=== PATIENT | female | born 1945 | race Caucasian/White ===

== ENCOUNTER → 2016-06-07 | Outpatient (CLI) | payer OTHER, MEDICARE | LOC: BHFA 13:15 | PROVIDERS: ATTEND Internal Medicine Cardiovascular Disease | DX: R94.31 Abnormal electrocardiogram [ECG] [EKG] (principal); R07.9 Chest pain, unspecified ==

== ENCOUNTER → 2016-06-10 | Outpatient (CLI) | payer OTHER | LOC: FIMAGING 10:41 | PROVIDERS: ATTEND Family Medicine | DX: Z13.6 Encounter for screening for cardiovascular disorders (principal) ==

== ENCOUNTER → 2016-07-01 | Outpatient (CLI) | payer OTHER, MEDICARE | LOC: FIMAGING 12:21 | DX: Z12.31 Encounter for screening mammogram for malignant neoplasm of breast (principal); Z85.3 Personal history of malignant neoplasm of breast | CPT/HCPCS: G0202 ==

== ENCOUNTER 2017-02-25 12:00 | Observation (INO) | payer OTHER, MEDICARE ==
--- NOTE | 2017-02-25 13:01 | EDPHY ---
H & P Time Seen by Provider: 02/25/17 12:48 HPI/ROS: CHIEF COMPLAINT: Shortness of breath HISTORY OF PRESENT ILLNESS: Patient is a 71-year-old female who is status post bilateral lower extremity liposuction on February [address] Mcdermott. Patient is been ambulatory and doing well post procedure. However, for the past week he has had increasing shortness of breath. She states that is market. She has a mild cough that is nonproductive. No chest pain. No fevers or chills. Patient had bruising on her bilateral lower extremities after the procedure. She states they are minimally swollen bilaterally. The right is always slightly more swollen than the left per report. Patient has no leg pain. No rash. REVIEW OF SYSTEMS: My complete review of systems is negative except as mentioned in the HPI. Past Medical/Surgical History: Includes breast cancer, hypothyroidism Past surgical history: Includes liposuction Social history: The patient does not smoke Smoking Status: Never smoked Physical Exam: Vitals noted GENERAL: Well-appearing, in no acute distress, alert. HEENT: Eyes normal to inspection, normal pharynx, no signs of dehydration. NECK: No thyromegaly, no lymphadenopathy, supple. RESPIRATORY: Clear to auscultation bilaterally, no rales, rhonchi or wheezing. CVS: Regular rate and rhythm, no rubs, murmurs, or gallops. ABDOMEN: Soft, nontender, nondistended, no organomegaly. BACK: Normal to inspection, no CVA tenderness. SKIN: Normal color, no rash, warm, dry. No pallor. EXTREMITIES: Patient has minimal pedal edema. Right is slightly worse than the left. no calf tenderness, no Homans sign or cords, no joint swelling. The patient has bruising on her bilateral upper legs. This appears to be resolving normally from her procedure. No signs of erythema or fluid collection. NEURO/PSYCH: Alert and oriented x3, normal mood and affect, normal motor sensory exam. No obvious cranial nerve deficit. Constitutional: Initial Vital Signs Temperature (C) 37.2 C 02/25/17 12:12 Heart Rate 91 02/25/17 12:12 Respiratory Rate 16 02/25/17 12:12 Blood Pressure 112/66 02/25/17 12:12 O2 Sat (%) 94 02/25/17 12:12 O2 Delivery Mode Room Air Allergies/Adverse Reactions: penicillin G Allergy (Verified 02/25/17 12:09) Home Medications: Medication Instructions Recorded Ascorbic Acid [Vitamin C 500 mg 1,000 mg PO DAILY 02/25/17 (*)] Cholecalciferol Vit D3 [Vitamin D3 3,000 units PO DAILY 02/25/17 (*)] Fluticasone Propionate [Flonase 1 spray NS DAILY PRN 02/25/17 Allergy Relief] Herbals/Supplements -Info Only 1 ea PO DAILY 02/25/17 LORazepam [Ativan (*)] 1 mg PO HS 02/25/17 Lansoprazole [Prevacid] 15 mg PO DAILY 02/25/17 Levothyroxine [Synthroid 50 mcg 50 mcg PO DAILY06 02/25/17 (*)] Venlafaxine HCl [Venlafaxine HCl 75 mg PO DAILY 02/25/17 ER] Vitamin B Complex [B Complex] 2 each PO DAILY 02/25/17 Medical Decision Making - Diagnostics EKG Interpretation: Sinus rhythm at 78. Normal axis. Normal intervals. No ST or T-wave abnormalities. This EKG is interpreted as normal by me. Imaging Results: Imaging Impressions Extremity Venous Study 02/25/17 12:57 Impression: Negative. No deep venous thrombosis in the right or left lower extremity. Findings discussed with Emergency Department physician, Venessa Bro at 14 :07 hours on 02/25/17. Chest/Thorax CTA 02/25/17 14:12 Impression: 1. Moderate volume of acute thrombopulmonary embolic disease. 2. Airways disease and minimal air trapping. 3. No pulmonary infarction or effusion. Findings discussed with Emergency Department physician, Dr. Venessa Bro on February 25, 2017 at 1454 hours. ED Course/Re-evaluation: In the emergency department I discussed possible etiologies with the patient. I answered all her questions. IV was placed. Laboratory studies and ultrasound were ordered. Patient's CBC was notable for slightly low hematocrit. White count was normal. Chemistry panel is unremarkable. BNP was negative. Troponin was negative. Patient's D-dimer was elevated at greater than 3. Ultrasound of bilateral lower extremity. Please refer the dictated report by Dr. Barnett. No DVT noted. He has of the elevated D-dimer a CT angiogram was ordered. I discussed the results with the patient and plan. CT angio of the chest: Please refer the dictated report by Dr. Barnett.. Patient has numerous pulmonary emboli. I discussed the results with the patient. I answered all her questions. I paged the hospitalist service. The there is not a weight documented on the patient. I requested the nursing staff to with the patient. 15 30: I am still waiting weight. Because of this patient was given Lovenox 80 mg SQ 1535: Doctor David called back from the hospitalist service. He will admit the patient. Differential Diagnosis: My differential includes but is not limited to pneumonia, bronchitis, CHF, ACS, acute KS, DVT, PE - Data Points Laboratory Results: Laboratory Results 02/25/17 13:30 02/25/17 13:30 02/25/17 02/25/17 02/25/17 13:30 13:30 13:30 WBC 6.54 10^3/uL 10^3/uL (3.80-9.50) RBC 3.83 10^6/uL L 10^6/uL (4.18-5.33) Hgb 12.4 g/dL L g/dL (12.6-16.3) Hct 37.0 % L % (38.0-47.0) MCV 96.6 fL fL (81.5-99.8) MCH 32.4 pg pg (27.9-34.1) MCHC 33.5 g/dL g/dL (32.4-36.7) RDW 13.6 % % (11.5-15.2) Plt Count 250 10^3/uL 10^3/uL (150-400) MPV 10.4 fL fL (8.7-11.7) Neut % (Auto) 59.2 % % (39.3-74.2) Lymph % (Auto) 24.6 % % (15.0-45.0) [place] % (Auto) 10.2 % % (4.5-13.0) Eos % (Auto) 4.6 % % (0.6-7.6) Baso % (Auto) 0.6 % % (0.3-1.7) Nucleat RBC Rel Count 0.0 % % (0.0-0.2) Absolute Neuts (auto) 3.87 10^3/uL 10^3/uL (1.70-6.50) Absolute Lymphs (auto) 1.61 10^3/uL 10^3/uL (1.00-3.00) Absolute Monos (auto) 0.67 10^3/uL 10^3/uL (0.30-0.80) Absolute Eos (auto) 0.30 10^3/uL 10^3/uL (0.03-0.40) Absolute Basos (auto) 0.04 10^3/uL 10^3/uL (0.02-0.10) Absolute Nucleated RBC 0.00 10^3/uL 10^3/uL (0-0.01) Immature Gran % 0.8 % % (0.0-1.1) Immature Gran # 0.05 10^3/uL 10^3/uL (0.00-0.10) D-Dimer 3.44 ug/mLFEU H ug/mLFEU (0.00-0.50) Sodium 140 mEq/L mEq/L (134-144) Potassium 4.3 mEq/L mEq/L (3.5-5.2) Chloride 106 mEq/L mEq/L (97-110) Carbon Dioxide 26 mEq/l mEq/l (22-31) Anion Gap 8 mEq/L mEq/L (8-16) BUN 16 mg/dL mg/dL (7-23) Creatinine 0.9 mg/dL mg/dL (0.6-1.0) Estimated GFR > 60 Glucose 90 mg/dL mg/dL (70-100) Calcium 9.2 mg/dL mg/dL (8.5-10.4) Troponin I < 0.012 ng/mL ng/mL (0.000-0.034) NT-Pro-B Natriuret Pep 60 pg/mL pg/mL (0-125) Departure - Departure Disposition: Home, Routine, Self-Care Clinical Impression: Dyspnea Qualifiers: Dyspnea type: shortness of breath Qualified Code(s): R06.02 - Shortness of breath Condition: Good
[2017-02-25 13:49] LABS: % IMMATURE GRANULYOCYTES 0.8 % (0.0-1.1); ABSOLUTE IMMATURE GRANULOCYTES 0.05 10^3/uL (0.00-0.10); ADD DIFF? NO; ADD MORPH? NO; ADD SCAN? NO; ATYPICAL LYMPHOCYTE FLAG 0 (0-99); FRAGMENT RBC FLAG 0 (0-99); HEMOGLOBIN 12.4 g/dL (12.6-16.3); LEFT SHIFT FLG 0 (0-99); LIPEMIA HEMOLYSIS FLAG 80 (0-99); MEAN CELL HEMOGLOBIN 32.4 pg (27.9-34.1); MEAN CELL HEMOGLOBIN CONCENTR. 33.5 g/dL (32.4-36.7); MEAN CELL VOLUME 96.6 fL (81.5-99.8); MEAN PLATELET VOLUME 10.4 fL (8.7-11.7); PLATELET CLUMPS FLAG 0 (0-99); PLATELET COUNT 250 10^3/uL (150-400); RED BLOOD CELL COUNT 3.83 10^6/uL (4.18-5.33); RED CELL DISTRIBUTION WIDTH 13.6 % (11.5-15.2)
[2017-02-25 13:58] LABS: ANION GAP 8 mEq/L (8-16); CALCIUM 9.2 mg/dL (8.5-10.4); CARBON DIOXIDE 26 mEq/l (22-31); CHLORIDE 106 mEq/L (97-110); CREATININE 0.9 mg/dL (0.6-1.0); GLOMERULAR FILTRATION RATE > 60; GLUCOSE 90 mg/dL (70-100); POTASSIUM 4.3 mEq/L (3.5-5.2); SODIUM 140 mEq/L (134-144)
[2017-02-25 14:10] LABS: TROPONIN I < 0.012 ng/mL (0.000-0.034)
[2017-02-25] MEDS ORDERED: IOPAMIDOL (ISOVUE 370) 100 ML BTL IV ONE (14:18)
--- NOTE | 2017-02-25 15:15 | CPEKG ---
Heart Rate: 78 RR Interval: 769 P-R Interval: 168 QRSD Interval: 84 QT Interval: 408 QTC Interval: 465 P [place]: 58 QRS [place]: 23 T Wave [place]: 45 EKG Severity - OTHERWISE NORMAL ECG - EKG Impression: SINUS RHYTHM EKG Impression: LOW VOLTAGE IN FRONTAL LEADS Electronically Signed By: Venessa Bro 25-Feb-2017 20:04:28
[2017-02-25] MEDS ORDERED: ENOXAPARIN 80 MG/0.8 ML SYR SC ONE (15:34)
[2017-02-25] MEDS ORDERED: oxyCODONE IR 5 MG TAB PO PRN (18:02)
[2017-02-25] MEDS ORDERED: ONDANSETRON DISINTEGRATING 4 MG TAB PO PRN (18:02)
[2017-02-25] MEDS ORDERED: ONDANSETRON 4 MG/2 ML VIAL IVP PRN (18:02)
[2017-02-25] MEDS ORDERED: ACETAMINOPHEN 325 MG TAB PO PRN (18:02)
[2017-02-25] MEDS ORDERED: ALBUTEROL 3 ML DEYVIAL IH PRN (18:02)
--- NOTE | 2017-02-25 18:07 | PDGENHP ---
History and Physical - Chief Complaint SOB - History of Present Illness 71-year-old female who is status post bilateral lower extremity liposuction on February [address] Mcdermott who was seen at his office today for SOB and sent to the E.D. CTA showed bilateral PE's. No infarct or right sided strain. NO hx of PE. Never been on AC. Lovenox started in the E.D. she has a remote hx of breast cancer. Sees [place] every September. No constitutional symptoms. LE doppler negative for DVT. On RA No CP CTA reviewed EKG reviewed PMHX: breast cancer, hypothyroidism, depression, GERD Past surgical history: liposuction Social history: The patient does not smoke. Lives with FmHx: [place] History Information - Allergies/Home Medication List Allergies/Adverse Reactions: penicillin G Allergy (Verified 02/25/17 12:09) Home Medications: Ascorbic Acid [Vitamin C 500 mg (*)] 1,000 mg PO DAILY 02/25/17 [Last Taken ] Cholecalciferol Vit D3 [Vitamin D3 (*)] 3,000 units PO DAILY 02/25/17 [Last Taken 02/25/17] Fluticasone Propionate [Flonase Allergy Relief] 1 spray NS DAILY PRN 02/25/17 [ Last Taken Unknown] Herbals/Supplements -Info Only 1 ea PO DAILY 02/25/17 [Last Taken Unknown] LORazepam [Ativan (*)] 1 mg PO HS 02/25/17 [Last Taken 02/24/17] Lansoprazole [Prevacid] 15 mg PO DAILY 02/25/17 [Last Taken 02/25/17] Levothyroxine [Synthroid 50 mcg (*)] 50 mcg PO DAILY06 02/25/17 [Last Taken ] Venlafaxine HCl [Venlafaxine HCl ER] 75 mg PO DAILY 02/25/17 [Last Taken ] Vitamin B Complex [B Complex] 2 each PO DAILY 02/25/17 [Last Taken 02/25/17] I have personally reviewed and updated: medical history, social history - Social History Smoking Status: Never smoked Review of Systems Review of Systems: ROS: 10pt was reviewed & negative except for what was stated in HPI & below Physical Exam Physical Exam: Temp Pulse Resp BP Pulse Ox 36.6 C 75 14 146/80 H 96 02/25/17 16:18 02/25/17 16:18 02/25/17 16:18 02/25/17 16:18 02/25/17 16:18 Constitutional: no apparent distress, appears nourished Eyes: PERRL, EOMI Ears, Nose, Mouth, Throat: moist mucous membranes, hearing normal Cardiovascular: regular rate and rhythym, No edema Respiratory: no respiratory distress, no rales or rhonchi, reduced air movement , No clear to auscultation Gastrointestinal: normoactive bowel sounds, soft, non-tender abdomen Skin: warm Neurologic: AAOx3 Psychiatric: interacting appropriately, not anxious, not encephalopathic Lab Data & Imaging Review 02/25/17 13:30 02/25/17 13:30 WBC 6.54 10^3/uL (3.80-9.50) 02/25/17 13:30 RBC 3.83 10^6/uL (4.18-5.33) L 02/25/17 13:30 Hgb 12.4 g/dL (12.6-16.3) L 02/25/17 13:30 Hct 37.0 % (38.0-47.0) L 02/25/17 13:30 MCV 96.6 fL (81.5-99.8) 02/25/17 13:30 MCH 32.4 pg (27.9-34.1) 02/25/17 13:30 MCHC 33.5 g/dL (32.4-36.7) 02/25/17 13:30 RDW 13.6 % (11.5-15.2) 02/25/17 13:30 Plt Count 250 10^3/uL (150-400) 02/25/17 13:30 MPV 10.4 fL (8.7-11.7) 02/25/17 13:30 Neut % (Auto) 59.2 % (39.3-74.2) 02/25/17 13:30 Lymph % (Auto) 24.6 % (15.0-45.0) 02/25/17 13:30 [place] % (Auto) 10.2 % (4.5-13.0) 02/25/17 13:30 Eos % (Auto) 4.6 % (0.6-7.6) 02/25/17 13:30 Baso % (Auto) 0.6 % (0.3-1.7) 02/25/17 13:30 Nucleat RBC Rel Count 0.0 % (0.0-0.2) 02/25/17 13:30 Absolute Neuts (auto) 3.87 10^3/uL (1.70-6.50) 02/25/17 13:30 Absolute Lymphs (auto) 1.61 10^3/uL (1.00-3.00) 02/25/17 13:30 Absolute Monos (auto) 0.67 10^3/uL (0.30-0.80) 02/25/17 13:30 Absolute Eos (auto) 0.30 10^3/uL (0.03-0.40) 02/25/17 13:30 Absolute Basos (auto) 0.04 10^3/uL (0.02-0.10) 02/25/17 13:30 Absolute Nucleated RBC 0.00 10^3/uL (0-0.01) 02/25/17 13:30 Immature Gran % 0.8 % (0.0-1.1) 02/25/17 13:30 Immature Gran # 0.05 10^3/uL (0.00-0.10) 02/25/17 13:30 D-Dimer 3.44 ug/mLFEU (0.00-0.50) H 02/25/17 13:30 Sodium 140 mEq/L (134-144) 02/25/17 13:30 Potassium 4.3 mEq/L (3.5-5.2) 02/25/17 13:30 Chloride 106 mEq/L (97-110) 02/25/17 13:30 Carbon Dioxide 26 mEq/l (22-31) 02/25/17 13:30 Anion Gap 8 mEq/L (8-16) 02/25/17 13:30 BUN 16 mg/dL (7-23) 02/25/17 13:30 Creatinine 0.9 mg/dL (0.6-1.0) 02/25/17 13:30 Estimated GFR > 60 02/25/17 13:30 Glucose 90 mg/dL (70-100) 02/25/17 13:30 Calcium 9.2 mg/dL (8.5-10.4) 02/25/17 13:30 Troponin I < 0.012 ng/mL (0.000-0.034) 02/25/17 13:30 NT-Pro-B Natriuret Pep 60 pg/mL (0-125) 02/25/17 13:30 Assessment & Plan Assessment: #Acute PE #Hx of Breast Cancer #Hypothyroidism #GERD Plan: observation lovenox likely transition to oral agent tomorrow TTE, the pts requests f/u with Oncology continue appropriate home meds Full code
[2017-02-25] MEDS: ENOXAPARIN 80 MG/0.8 ML SYR SC SCH (20:09)
[2017-02-25] MEDS ORDERED: LORazepam 1 MG TAB PO SCH (21:00)
[2017-02-25] MEDS ORDERED: ENOXAPARIN 80 MG/0.8 ML SYR SC SCH (21:00)
[2017-02-25] MEDS ORDERED: FLUTICASONE NASAL 120 SPRAYS/16 GM MDI NS PRN (21:00)
[2017-02-26 05:03] LABS: ABSOLUTE IMMATURE GRANULOCYTES 0.06 10^3/uL (0.00-0.10); ADD DIFF? NO; ADD MORPH? NO; ADD SCAN? NO; ATYPICAL LYMPHOCYTE FLAG 0 (0-99); FRAGMENT RBC FLAG 0 (0-99); HEMATOCRIT 36.3 % (38.0-47.0); HEMOGLOBIN 12.3 g/dL (12.6-16.3); LEFT SHIFT FLG 0 (0-99); LIPEMIA HEMOLYSIS FLAG 90 (0-99); MEAN CELL HEMOGLOBIN 33.2 pg (27.9-34.1); MEAN CELL HEMOGLOBIN CONCENTR. 33.9 g/dL (32.4-36.7); MEAN CELL VOLUME 97.8 fL (81.5-99.8); MEAN PLATELET VOLUME 10.1 fL (8.7-11.7); PLATELET CLUMPS FLAG 10 (0-99); PLATELET COUNT 245 10^3/uL (150-400); RED BLOOD CELL COUNT 3.71 10^6/uL (4.18-5.33); RED CELL DISTRIBUTION WIDTH 13.8 % (11.5-15.2)
[2017-02-26 05:31] LABS: ANION GAP 7 mEq/L (8-16); CALCIUM 8.9 mg/dL (8.5-10.4); CARBON DIOXIDE 29 mEq/l (22-31); CHLORIDE 106 mEq/L (97-110); CREATININE 0.9 mg/dL (0.6-1.0); GLOMERULAR FILTRATION RATE > 60; GLUCOSE 88 mg/dL (70-100); MAGNESIUM 2.3 mg/dL (1.6-2.3); POTASSIUM 4.8 mEq/L (3.5-5.2); SODIUM 142 mEq/L (134-144)
[2017-02-26] MEDS ORDERED: LEVOTHYROXINE 50 MCG TAB PO SCH (06:00)
[2017-02-26 07:29] VITALS: BP 134/81; PULSE 77; RESP 12; TEMP 97.8; O2SAT 94
[2017-02-26] MEDS ORDERED: ASCORBIC ACID 500 MG TAB PO SCH (09:00)
[2017-02-26] MEDS ORDERED: Herbals/Supplements -Info Only PO SCH (09:00)
[2017-02-26] MEDS ORDERED: CHOLECALCIFEROL VIT D3 1,000 UNITS TAB PO SCH (09:00)
[2017-02-26] MEDS: PANTOPRAZOLE SODIUM 40 MG TAB PO SCH ×2 (09:31→09:37)
[2017-02-26] MEDS: VITAMIN B COMPLEX 1 EA CAP/TAB PO SCH ×2 (09:31→10:03)
[2017-02-26] MEDS: VENLAFAXINE XR 75 MG CAP PO SCH ×2 (09:32→09:36)
[2017-02-26] MEDS: ENOXAPARIN 80 MG/0.8 ML SYR SC SCH (09:42)
--- NOTE | 2017-02-26 09:59 | ASMTCMCOM ---
CM Note CM Note Notes: Pt. is a 71-year-old woman admitted w/ bilateral PEs. Had liposuction procedure on 02/14/17. Hx. breast cancer. No PT/OT orders. Pt. lives w/ . Plan for independent d/c at this time. CM available should d/c POC change. Date Signed: 02/26/2017 09:58 AM Electronically Signed By:Kayla De Leon LCSW
--- NOTE | 2017-02-26 13:07 | HOSPPROG ---
Hospitalist Progress Note Assessment/Plan: Patient is a 71 y/o female who is s/p lower ext liposuction on February 14. She had a f/u appt with Dr Mcdermott after this procedure and was short of breath. She had a CTA which showed Bilateral PE's. Today is my first encounter w the patient, chart reviewed. *acute bilateral PE's -started on Lovenox -patient checking her insurance to see if they cover Xarelto -she doesn't want to do lovenox shots *hx of remote breast ca -further f/u with Dr Damon *Hypothyroidism *GERD *Plan: f/u with echo, if doing well, can dc later today Subjective: Angela is feeling well. No complaints. Objective: Vital Signs Temp Pulse Resp BP Pulse Ox 36.6 C 77 12 134/81 H 94 02/26/17 07:27 02/26/17 07:27 02/26/17 07:27 02/26/17 07:27 02/26/17 07:27 Laboratory Results 02/26/17 04:46 02/26/17 04:46 - Physical Exam Constitutional: no apparent distress, appears nourished, not in pain Eyes: PERRL Ears, Nose, Mouth, Throat: hearing normal Cardiovascular: regular rate and rhythym Respiratory: no respiratory distress Gastrointestinal: normoactive bowel sounds Skin: warm, normal color Musculoskeletal: full muscle strength Neurologic: AAOx3 Psychiatric: interacting appropriately ICD10 Worksheet Patient Problems: Problems Problem Status Onset Dyspnea Acute
--- NOTE | 2017-02-26 13:33 | ECHO ---
[email or web address] [address] [address] Main: [phone] Fax: Transthoracic Echocardiogram Name: LUPE LYNN MR#: [id number] Study Date: 02/26/2017 Study Time: 12:14 PM Date of : 1945 Age: 71 year(s) Height: 154.9 cm (61 in.) Weight: 67.13 kg (148 lb.) BSA: 1.66 m2 Gender: Female Examination: Echo Indication: PE, eval RV strain Image Quality: Contrast: Requested by: Wally Hernandez BP: 119 mmHg/67 mmHg Heart Rate: Rhythm: Normal sinus rhythm Indication: PE, eval RV strain Procedure Staff Magnetic Locater: Maximo Burks Reading Physician: Salomón Castillo Requesting Provider: Conclusions: Normal size left ventricle. EF is 61 %. No regional wall motion abnormality. Normal size right ventricle. Normal RV function. Trivial to mild tricuspid valve regurgitation. Measurements: Chambers Valvular Assessment AV/MV Valvular Assessment TV/PV Normal Normal Normal Name Value Range Name Value Range Name Value Range Ao Barbara (MM): 2.4 cm (2.2 cm-3.7 LVOT Vmax: 0.90 m/s (0.7 m/s-1.1 TR Vmax: 2.81 mm/s ( - ) cm) m/s) TR PGmax: 32 mmHg ( - ) IVSd (2D): 0.7 cm (0.6 cm-1.1 MV E Vmax: 0.60 m/s ( - ) syst. PAP: 37 mmHg ( - ) cm) MV A Vmax: 0.89 m/s ( - ) PV Vmax: 0.95 m/s (0.6 m/s-0.9 LVDd (2D): 4.3 cm (3.9 cm-5.3 MV E/A: 0.67 ( - ) m/s) cm) PV PGmax: 4 mmHg ( - ) LVDs (2D): 2.9 cm (2.1 cm-4 cm) LVPWd (2D): 0.9 cm ( - ) LVEF (2D): 61 (>=54 %) Continued Measurements: Chambers Valvular Assessment AV/MV Valvular Assessment TV/PV Name Value Name Value Name Value LADs Lon.7 cm MV E/E' Septal: 10.70 CVP (est.): 5 mmHg LA Area: 15.8 cm2 MV E/E' Lateral: 7.30 Patient: LUPE LYNN Study Date: 02/26/2017 Page 1 of 2 12:14 PM Findings: Left Ventricle: Normal size left ventricle. No LV hypertrophy. Normal global systolic LV function. EF is 61 %. No regional wall motion abnormality. Diastolic dysfunction is present. . Right Ventricle: Normal size right ventricle. Normal RV function. Left Atrium: The left atrium is normal in size. Right Atrium: The right atrium is normal in size. Mitral Valve: The mitral valve is normal in appearance and function. Trivial mitral valve regurgitation. Aortic Valve: The aortic valve is normal in appearance and function. The aortic valve is tri-leaflet. There is no aortic valve regurgitation. Tricuspid Valve: Trivial to mild tricuspid valve regurgitation. The pulmonary artery pressure is normal. Pulmonic Valve: The pulmonic valve is normal in appearance and function. Aorta: The aorta is normal. Pericardium: No pericardial effusion. (No Signature Object) Patient: LUPE LYNN Study Date: 02/26/2017 Page 2 of 2 12:14 PM [id number]
--- NOTE | 2017-02-26 16:23 | GDS ---
[f rep st] DISCHARGE SUMMARY DISCHARGE DIAGNOSES: 1. Bilateral pulmonary emboli. 2. History of remote cancer. 3. Hypothyroidism. 4. Gastroesophageal reflux disease. HISTORY OF PRESENT ILLNESS: Briefly, the patient is a 71-year-old female who is status post lower extremity liposuction on February 14. She had a followup appointment with her doctor. At this visit, she was complaining of being significantly short of breath. Her doctor recommended she come to the hospital for further evaluation. At that time, she had a CTA which showed bilateral pulmonary emboli. HOSPITAL COURSE: 1. Acute bilateral pulmonary emboli: She was treated with a treatment dose of Lovenox. She will be discharged on Xarelto. I gave her a starter pack to get initiated on this. She will further follow up with Dr. Araya. She had an echocardiogram performed that did not show any right-sided heart strain. She has normal RV function. Her EF was 61%. She has some diastolic dysfunction. 2. History of breast cancer: She will further follow with Dr. Damon. 3. Hypothyroidism: On Synthroid. 4. GERD: No complaints. DISCHARGE CONDITION: Stable. Blood pressure is 134/81, O2 sat on room air 94% , respiratory rate is 12, pulse is 77, temperature is 36.6 Celsius. MEDICATIONS AT DISCHARGE: Please see the EMR. DISCHARGE INSTRUCTIONS: 1. Get the Xarelto filled at [facility] today. 2. Do the starter pack, and then after she is done with this, she will be on 20 mg daily. /[id number]/MODL MTDD
== END 2017-02-26 16:13 | disposition home or self-care (01) ==
LOC: F3E 16:14
PROVIDERS: ADMIT Family Medicine; ATTEND Internal Medicine
DX: I97.89 Other postprocedural complications and disorders of the circulatory system, not elsewhere classified (principal); I26.99 Other pulmonary embolism without acute cor pulmonale; E03.9 Hypothyroidism, unspecified; K21.9 Gastro-esophageal reflux disease without esophagitis; Z85.3 Personal history of malignant neoplasm of breast
CPT/HCPCS: 71020; 71275; 93005; 93306; 93970; 96372; 99285; G0378; J1650; Q9967

== ENCOUNTER → 2017-05-30 | Outpatient (CLI) | payer OTHER, MEDICARE | LOC: FIMAGING 11:56 | PROVIDERS: ATTEND Physician Assistant | DX: R06.02 Shortness of breath (principal); I26.99 Other pulmonary embolism without acute cor pulmonale; Z79.899 Other long term (current) drug therapy ==

== ENCOUNTER → 2017-07-04 | Outpatient (CLI) | payer OTHER, MEDICARE | LOC: FIMAGING 10:40 | PROVIDERS: ATTEND Internal Medicine | DX: Z12.31 Encounter for screening mammogram for malignant neoplasm of breast (principal); Z85.3 Personal history of malignant neoplasm of breast ==

== ENCOUNTER → 2017-07-08 | Outpatient (CLI) | payer OTHER, MEDICARE ==
[~2017-07-08] MED LIST: IOPAMIDOL (ISOVUE 370) 100 ML BTL IV ONE
== END ==
LOC: CIMAGING 13:01
PROVIDERS: ATTEND Internal Medicine Hematology & Oncology
DX: R06.09 Other forms of dyspnea (principal); K44.9 Diaphragmatic hernia without obstruction or gangrene; Z79.01 Long term (current) use of anticoagulants; Z85.3 Personal history of malignant neoplasm of breast
CPT/HCPCS: 71275; Q9967

== ENCOUNTER → 2018-07-06 | Outpatient (CLI) | payer OTHER, MEDICARE | LOC: FIMAGING 10:12 | PROVIDERS: ATTEND Internal Medicine Hematology & Oncology | DX: Z12.31 Encounter for screening mammogram for malignant neoplasm of breast (principal); Z85.3 Personal history of malignant neoplasm of breast; Z13.820 Encounter for screening for osteoporosis; M85.89 Other specified disorders of bone density and structure, multiple sites; Z78.0 Asymptomatic menopausal state; Z79.899 Other long term (current) drug therapy ==